=== PATIENT | male | born 1955 | race Caucasian/White ===

== ENCOUNTER 2023-04-01 14:30 | Inpatient (IN) | payer MEDICAID, OTHER ==
[~2023-04-01] VITALS: Ht 167.6 cm; Wt 65.8 kg
[2023-04-01 19:52] LABS: BASOPHILS % 0.7 % (0.0-2.0); EOSINOPHILS % 2.6 % (0.0-5.0); HEMATOCRIT. 38.8 % (42.0-52.0); HEMOGLOBIN. 12.8 g/dL (14.0-18.0); LYMPHOCYTES % 21.2 % (20.0-50.0); MEAN CORPUSCULAR HEMOGLOBIN 30.2 pg (28.0-32.0); MEAN CORPUSCULAR HGB CONC 32.9 g/dL (31.0-37.0); MEAN CORPUSCULAR VOLUME 91.8 fL (80.0-94.0); MEAN PLATELET VOLUME 8.4 fl (7.4-10.4); MONOCYTES % 9.7 % (2.0-8.0); NEUTROPHILS % 65.8 % (40.0-76.0); PLATELET 228 x1000/uL (130-400); RED BLOOD CELL COUNT 4.23 mill/uL (4.7-6.1); RED CELL DISTRIBUTION WIDTH 14.6 % (11.6-14.6); WHITE BLOOD COUNT 5.8 x1000/uL (4.5-11.0)
[2023-04-01 20:18] LABS: CHLORIDE 105 mEq/L (98-107); INDEX HEMOLYSI 1 (1-3); INDEX ICTERIC 1 (1-4); INDEX LIPEMIC 1 (1-3); POTASSIUM 4.6 mEq/L (3.5-5.1); SODIUM 136 mEq/L (136-145)
[2023-04-01 20:27] LABS: ALANINE AMINOTRANSFERASE 23 IU/L (13-61); ALBUMIN 3.8 g/dL (3.4-5.0); ASPARTATE AMINOTRANSFERASE 24 IU/L (15-37); BILIRUBIN TOTAL 0.5 mg/dL (0.1-1.0); CALCIUM 9.5 mg/dL (8.5-10.1); CARBON DIOXIDE 26 mEq/L (21-32); CREATININE 0.8 mg/dL (0.6-1.3); GLUCOSE 184 mg/dL (70-105); PROTEIN TOTAL 8.5 g/dL (6.0-8.3); UREA NITROGEN BLOOD 26 mg/dL (7-21)
[2023-04-01] MEDS ORDERED: VANCOMYCIN 1G PREMIX 200 ML IV ONE (23:15)
[2023-04-01] MEDS ORDERED: PIPERACILLIN/TAZ 3.375G PREMIX 50 ML IV ONE (23:15)
[2023-04-02 02:00] VITALS: BP 148/78; PULSE 85; RESP 18; TEMP 97.3
[2023-04-02] MEDS ORDERED: DEXTROSE 50% WATER 50ML SYRINGE IV PRN (03:45)
[2023-04-02 04:00] VITALS: BP 148/76; PULSE 85; RESP 18; TEMP 97.3
[2023-04-02] MEDS ORDERED: NALOXONE HCL 0.4MG/ML VIAL IV PRN (04:00)
[2023-04-02] MEDS ORDERED: VANCOMYCIN 750MG PREMIX 150 ML IV SCH (04:30)
[2023-04-02] MEDS: PIPERACILLIN/TAZOBACTAM 3.375 G in DEXTROSE 5% WATER 50 ML IV SCH ×3 (06:33→22:12)
[2023-04-02] MEDS: INSULIN LISPRO 100 UNITS/ML SUBCUT SCH ×4 (07:50→21:00)
[2023-04-02 08:00] VITALS: BP 132/63; PULSE 73; RESP 18; TEMP 97.5
[2023-04-02] MEDS: BLOOD SUGAR DIAGNOSTIC STRIP TEST SCH ×4 (08:05→21:00)
[2023-04-02] MEDS ORDERED: AMOX-405 MT (08:48)
[2023-04-02] MEDS ORDERED: augmentin PO (08:48)
[2023-04-02] MEDS ORDERED: ATOR-2 MT (08:50)
[2023-04-02] MEDS ORDERED: AMLO5TAB88 PO (08:50)
[2023-04-02] MEDS ORDERED: DOXY100C5 PO (08:54)
[2023-04-02] MEDS ORDERED: EMPA1TAB24 PO (08:54)
[2023-04-02] MEDS ORDERED: FINE10TA PO (08:54)
[2023-04-02] MEDS ORDERED: AMOX1TAB16 PO (08:54)
[2023-04-02] MEDS ORDERED: ASPI-1406 PO (08:54)
[2023-04-02] MEDS: AMLODIPINE 10MG TABLET PO SCH (09:49)
[2023-04-02 12:00] VITALS: BP 113/62; PULSE 72; RESP 16; TEMP 98.8
[2023-04-02 16:00] VITALS: BP 115/57; PULSE 71; RESP 17; TEMP 97.9
[2023-04-02] MEDS: VANCOMYCIN 750MG PREMIX 150 ML IV SCH (17:35)
[2023-04-02 20:00] VITALS: BP 118/62; PULSE 73; RESP 18; TEMP 97.7
[2023-04-02] MEDS: ATORVASTATIN CALCIUM 40MG TABLET PO SCH (21:06)
[2023-04-03] VITALS: BP 123/62; PULSE 70; RESP 18; TEMP 97.5
[2023-04-03 04:00] VITALS: BP 104/56; PULSE 72; RESP 18; TEMP 97.6
[2023-04-03] MEDS: VANCOMYCIN 750MG PREMIX 150 ML IV SCH ×2 (05:15→18:52)
[2023-04-03] MEDS ORDERED: BUPIVACAINE HCL/PF 0.5% (5MG/ML) 10ML ONE (07:03)
[2023-04-03] MEDS ORDERED: LIDOCAINE HCL 1% 10 MG/ML 10ML VIAL ONE ×2 (07:03→09:32)
[2023-04-03] MEDS: BLOOD SUGAR DIAGNOSTIC STRIP TEST SCH ×4 (07:20→21:00)
[2023-04-03] MEDS: INSULIN LISPRO 100 UNITS/ML SUBCUT SCH ×4 (07:50→21:00)
[2023-04-03 08:00] VITALS: BP 120/69; PULSE 76; RESP 19; TEMP 97.7
[2023-04-03] MEDS: AMLODIPINE 10MG TABLET PO SCH (08:32)
[2023-04-03] MEDS ORDERED: PROPOFOL 200MG/20ML VIAL IV ONE (09:32)
[2023-04-03] MEDS ORDERED: MIDAZOLAM HCL 2 MG/2 ML VIAL ONE (09:32)
[2023-04-03] MEDS ORDERED: POLYMYXIN B SULFATE 500000 UNITS/VIAL ONE (09:59)
[2023-04-03] MEDS ORDERED: ONDANSETRON HCL 4MG/2ML INJ IV PRN (10:30)
[2023-04-03] MEDS ORDERED: MORPHINE SULFATE 4 MG/ML CPJ (NOT FOR IM USE) IV PRN (10:30)
[2023-04-03] MEDS ORDERED: MORPHINE SULFATE 2 MG/ML CPJ (NOT FOR IM USE) IV PRN (10:30)
[2023-04-03] MEDS: PIPERACILLIN/TAZOBACTAM 3.375 G in DEXTROSE 5% WATER 50 ML IV SCH ×2 (14:45→20:51)
[2023-04-03 16:00] VITALS: BP 120/64; PULSE 101; RESP 20; TEMP 97.3
[2023-04-03] MEDS: HYDROCODONE/ACETAMINOPHEN 10/325MG TABLET PO PRN (18:58)
[2023-04-03 20:00] VITALS: BP 106/65; PULSE 61; RESP 18; TEMP 97.1
[2023-04-03] MEDS: ATORVASTATIN CALCIUM 40MG TABLET PO SCH (20:51)
[2023-04-04] VITALS: BP 137/65; PULSE 74; RESP 18; TEMP 97.5
[2023-04-04] MEDS: VANCOMYCIN 750MG PREMIX 150 ML IV SCH ×2 (05:56→22:13)
[2023-04-04] MEDS: BLOOD SUGAR DIAGNOSTIC STRIP TEST SCH ×4 (06:00→21:00)
[2023-04-04] MEDS: INSULIN LISPRO 100 UNITS/ML SUBCUT SCH ×4 (06:01→22:15)
[2023-04-04] MEDS: PIPERACILLIN/TAZOBACTAM 3.375 G in DEXTROSE 5% WATER 50 ML IV SCH ×3 (06:01→22:01)
[2023-04-04] MEDS: HYDROCODONE/ACETAMINOPHEN 10/325MG TABLET PO PRN ×2 (06:46→22:28)
[2023-04-04] MEDS: AMLODIPINE 10MG TABLET PO SCH (09:15)
[2023-04-04 09:43] LABS: CHLORIDE 110 mEq/L (98-107); INDEX HEMOLYSI 1 (1-3); INDEX ICTERIC 1 (1-4); INDEX LIPEMIC 1 (1-3); SODIUM 138 mEq/L (136-145)
[2023-04-04 09:54] LABS: CALCIUM 8.4 mg/dL (8.5-10.1); CARBON DIOXIDE 24 mEq/L (21-32); CREATININE 0.7 mg/dL (0.6-1.3); GLUCOSE 115 mg/dL (70-105); UREA NITROGEN BLOOD 16 mg/dL (7-21); VANCOMYCIN TROUGH 36.8 ug/mL (5.0-10.0)
[2023-04-04] MEDS ORDERED: IOHEXOL-350 100 ML BOTTLE ONE ×2 (14:02→15:04)
[2023-04-04 20:00] VITALS: BP 135/65; PULSE 76; RESP 20; TEMP 97.7
[2023-04-04] MEDS: ATORVASTATIN CALCIUM 40MG TABLET PO SCH (22:01)
[2023-04-05 04:00] VITALS: BP 131/66; PULSE 76; RESP 18; TEMP 98.3
[2023-04-05] MEDS: PIPERACILLIN/TAZOBACTAM 3.375 G in DEXTROSE 5% WATER 50 ML IV SCH (07:06)
[2023-04-05] MEDS: BLOOD SUGAR DIAGNOSTIC STRIP TEST SCH (07:07)
[2023-04-05] MEDS: INSULIN LISPRO 100 UNITS/ML SUBCUT SCH (07:14)
[2023-04-05] MEDS: AMLODIPINE 10MG TABLET PO SCH (09:00)
[2023-04-05] MEDS: VANCOMYCIN 750MG PREMIX 150 ML IV SCH (09:36)
[2023-04-05 11:19] VITALS: BP 102/59; PULSE 69; TEMP 97.4; O2SAT 97
== END 2023-04-05 12:04 | disposition home or self-care (01) | DRG 314 ==
LOC: ER 15:12 → 6WST 04-02 00:33 → EDBEDREQ 04-02 00:36
PROVIDERS: ADMIT Internal Medicine; ATTEND Internal Medicine
PROC: 0Y6Y0Z1 Detachment at Left 5th Toe, High, Open Approach (ICD-10-PCS; principal; 2023-04-03)
DX: E11.69 Type 2 diabetes mellitus with other specified complication (principal); E11.40 Type 2 diabetes mellitus with diabetic neuropathy, unspecified; M86.8X7 Other osteomyelitis, ankle and foot; L97.529 Non-pressure chronic ulcer of other part of left foot with unspecified severity; D64.9 Anemia, unspecified; E78.00 Pure hypercholesterolemia, unspecified; I10 Essential (primary) hypertension; E11.621 Type 2 diabetes mellitus with foot ulcer
CPT/HCPCS: 36415; 73630; 75635; 80048; 80053; 80202; 82962; 83036; 85025; 87070; 87075; 87077; 87186; 88304; 88311; 93923; 99285; J1815; J2250; J2543; J2704; J3370; J3490; J7060; Q9967

== ENCOUNTER 2024-06-26 10:27 | Emergency (ER) | payer MEDICAID, OTHER ==
[~2024-06-26] VITALS: Ht 160 cm; Wt 67.0 kg
[~2024-06-26 10:27] MED LIST: AMLO5TAB88 PO; ASPI-1406 PO; ATOR-2 MT; EMPA1TAB24 PO; FINE10TA PO
[2024-06-26 10:45] VITALS: O2SAT 99
[2024-06-26] MEDS ORDERED: HYDR-4001 MT (11:38)
[2024-06-26 12:28] VITALS: BP 137/65; PULSE 95; RESP 16; TEMP 36.94740; O2SAT 99
== END 2024-06-26 12:30 | disposition home or self-care (01) ==
LOC: ER 10:38
DX: S52.021B Displaced fracture of olecranon process without intraarticular extension of right ulna, initial encounter for open fracture type I or II (principal); I10 Essential (primary) hypertension; E11.9 Type 2 diabetes mellitus without complications; E78.00 Pure hypercholesterolemia, unspecified; Z79.899 Other long term (current) drug therapy; Z79.82 Long term (current) use of aspirin; Z68.26 Body mass index [BMI] 26.0-26.9, adult; W18.30XA Fall on same level, unspecified, initial encounter; Y93.89 Activity, other specified; Y92.89 Other specified places as the place of occurrence of the external cause; Y99.8 Other external cause status
CPT/HCPCS: 29105; 73080; 73090; 99284; A4565